=== PATIENT | male | born 1995 | race Caucasian/White ===

== ENCOUNTER 2018-03-22 13:51 | Emergency (ER) | payer MEDICAID ==
[~2018-03-22] VITALS: Ht 167.6 cm; Wt 77.3 kg
[2018-03-22 14:02] VITALS: BP 127/52; Ht 167.6 cm; Wt 77.3 kg
[2018-03-22] MEDS ORDERED: MAXITROL EYE DRO5 ML EACH EYE (15:00)
== END 2018-03-22 15:04 | disposition home or self-care (01) ==
LOC: D.ER 13:51
DX: H10.11 Acute atopic conjunctivitis, right eye (principal); F17.200 Nicotine dependence, unspecified, uncomplicated